=== PATIENT | female | born 1960 | race Caucasian/White ===

== ENCOUNTER 2025-03-16 06:16 | Day surgery (SDC) | payer BC ==
[~2025-03-16 06:16] MED LIST: Sodium Chloride 0.9% 10 ML Syringe FLUSH PRN
[2025-03-16] MEDS ORDERED: Propofol 200 MG/20 ML SDV IV ONE (06:17)
[2025-03-16] MEDS: Lactated Ringers 1,000 ML IV SCH (06:52)
== END 2025-03-16 09:00 | disposition home or self-care (01) ==
LOC: FB.SDS 06:16
PROVIDERS: ATTEND Surgery
DX: Z12.11 Encounter for screening for malignant neoplasm of colon (principal); K57.30 Diverticulosis of large intestine without perforation or abscess without bleeding; E78.5 Hyperlipidemia, unspecified; K21.9 Gastro-esophageal reflux disease without esophagitis; F41.9 Anxiety disorder, unspecified; Z86.16 Personal history of COVID-19; Z79.899 Other long term (current) drug therapy
CPT/HCPCS: 00812; 45378; A9270; J2704; J7120